=== PATIENT | male | born 1995 ===

== ENCOUNTER 2020-07-31 04:24 | Inpatient (IN) | payer OTHER ==
[2020-07-31] MEDS ORDERED: Boostrix 0.5 ML (Tdap) VIAL ONE (04:29)
[2020-07-31] MEDS ORDERED: Ondansetron PF 4 MG/2 ML Vial ONE ×2 (04:37→05:01)
[2020-07-31 04:41] LABS: Hemoglobin 12.9 g/dL (14.0-18.0); Mean Corpuscular HGB CONC 34.7 g/dL (32.0-36.0); Mean Corpuscular Hemoglobin 32.7 pg (27.0-31.0); Mean Corpuscular Volume 94.2 fL (78.0-98.0); Mean Platelet Volume 7.6 fL (7.4-10.4); Platelet Count 223 thou/uL (130-400); RBC Distribution Width 14.3 % (11.5-14.5); Red Blood Cell (RBC) Count 3.95 mill/uL (4.70-6.10); White Blood Cell (WBC) Count 9.1 thou/uL (4.8-10.8)
[2020-07-31] MEDS ORDERED: Fentanyl 250 MCG/5 ML VIAL ONE (04:58)
[2020-07-31 04:59] LABS: Acetaminophen Less than 6.0 mcg/mL (10.0-30.0); Alcohol Less than 10 mg/dL (Less than 10); Salicylate Less than 8.0 mg/dL (15.0-30.0)
[2020-07-31 05:00] LABS: ALT (SGPT) 19 U/L (8-55); AST (SGOT) 20 U/L (5-34); Alkaline Phosphatase 63 U/L (40-110); Anion Gap 18 mmol/L (10-20); BUN (Urea Nitrogen) 11 mg/dL (8.9-20.6); Bilirubin, Total 0.4 mg/dL (0.2-1.2); Calc. Creatinine Clearance 0 mL/min (70-130); Calcium 9.1 mg/dL (7.8-10.44); Carbon Dioxide 18 mmol/L (22-29); Chloride 106 mmol/L (98-107); Globulin 2.7 g/dL (2.4-3.5); Glucose 248 mg/dL (70-105); Potassium 3.3 mmol/L (3.5-5.1); Protein, Total 6.7 g/dL (6.0-8.3); Sodium 139 mmol/L (136-145)
[2020-07-31] MEDS ORDERED: Calcium Chloride 1 GM/10 ML Abboject SYRINGE ONE ×2 (05:01→05:21)
[2020-07-31] MEDS ORDERED: ePHEDrine Sulfate 50 MG/10 ML VIAL ONE (05:01)
[2020-07-31] MEDS ORDERED: PROPOFOL 200 MG/20 ML VIAL ONE (05:01)
[2020-07-31] MEDS ORDERED: Rocuronium Bromide 10 MG/ML (10ML VIAL) ONE (05:01)
[2020-07-31] MEDS ORDERED: PHENYLEPHRINE-NS 100 MCG/ML 10 ML SYRINGE ONE (05:01)
[2020-07-31] MEDS ORDERED: Lidocaine 1% PF 5 ML VIAL ONE (05:01)
[2020-07-31 05:09] LABS: INR-International Normal Ratio 1.6; PTT 31.3 sec (22.9-36.1); Prothrombin Time 19.4 sec (12.0-14.7)
[2020-07-31 05:14] LABS: Band 2 % (5-11); Lymphocytes 57 % (21-51); MDiff Complete? YES; Monocytes 6 % (0-10); Neutrophil 35 % (42-75)
[2020-07-31 05:15] LABS: Bacteria/HPF None Seen HPF (None Seen); Bilirubin Negative (Negative); Blood, Urine Negative (Negative); Clarity Clear (Clear); Glucose, Urine (Dipstick) Normal (Negative); Ketone, Urine Negative (Negative); Leukocyte Negative Leu/uL (Negative); Nitrite Negative (Negative); Protein, Urine (Dipstick) 20 mg/dL (Neg-Trace); RBC/HPF 0-3 HPF (0-3); Specific Gravity, Urine 1.036 (1.002-1.036); Squamous Epithelial None Seen HPF (0-3); WBC/HPF 0-3 HPF (0-3); pH, Urine 6.5 (5.0-9.0)
[2020-07-31] MEDS ORDERED: Sodium Bicarb 50 MEQ/50 ML Abboject 8.4% SYRINGE ONE (05:21)
[2020-07-31] MEDS ORDERED: TETANUS AND DIPHTHERIA TOX/PF 0.5 ML DISP.SYRIN IM ONE (08:00)
[2020-07-31] MEDS ORDERED: Dextrose 50% Abboject 50 ML SYRINGE SLOW IVP PRN (08:00)
[2020-07-31] MEDS ORDERED: hydrALAZINE 20 MG/ML VIAL SLOW IVP PRN (08:00)
[2020-07-31] MEDS ORDERED: Dextrose 5% in Water 1,000 ML IV PRN (08:00)
[2020-07-31] MEDS ORDERED: Lorazepam 2 MG/ML VIAL ONE (08:03)
[2020-07-31] MEDS ORDERED: fentaNYL Citrate/PF 2,000 MCG in Sodium Chloride 0.9% 60 ML IV PRN (08:06)
[2020-07-31] MEDS ORDERED: Propofol 1,000 MG/100 ML VIAL IV PRN (08:07)
[2020-07-31] MEDS ORDERED: Propofol 1,000 MG/100 ML VIAL IV ONE (08:15)
[2020-07-31 08:30] LABS: Actual Bicarbonate (HCO3a) 26.6 mEq/L (22-28); Base Excess (BEa) 1.7 mEq/L (-2.0 to +3.0); CO2 Tension 43.2 mmHg (35.0-45.0); Calcium, Ionized (arterial) 1.31 mmol/L (1.12-1.30); Carboxyhemoglobin (COHb) 0.3 gm% (0.0-3.0); Hemoglobin (Hb) 10.3 g/dL (14.0-18.0); O2 Tension (PaO2), arterial 189.5 mmHg (80.0-100.0); Potassium - ABG Lab 3.29 mmol/L (3.70-5.30); pH, Arterial 7.41 (7.35-7.45)
[2020-07-31 08:36] LABS: #Basophils 0.1 thou/uL (0.0-0.2); #Lymphocytes 0.8 thou/uL (1.20-3.40); #Monocytes 0.7 thou/uL (0.11-0.59); #Neutrophils 4.4 thou/uL (1.40-6.50); %Basophils 1.6 % (0.0-1.0); %Eosinophils 0.4 % (0.0-10.0); %Lymphocytes 13.7 % (21.0-51.0); %Monocytes 11.2 % (0.0-10.0); %Neutrophils 73.1 % (42.0-75.0); Hemoglobin 10.3 g/dL (14.0-18.0); Mean Corpuscular Hemoglobin 30.5 pg (27.0-31.0); Mean Corpuscular Volume 89.6 fL (78.0-98.0); Mean Platelet Volume 7.4 fL (7.4-10.4); Platelet Count 111 thou/uL (130-400); RBC Distribution Width 12.6 % (11.5-14.5); Red Blood Cell (RBC) Count 3.37 mill/uL (4.70-6.10)
[2020-07-31 08:44] LABS: Puncture Site Arterial Line
[2020-07-31 08:50] LABS: Lactic Acid 3.4 mmol/L (0.5-2.2)
[2020-07-31 08:50] LABS: INR-International Normal Ratio 1.2; Prothrombin Time 15.6 sec (12.0-14.7)
[2020-07-31 09:27] LABS: Anion Gap 14 mmol/L (10-20); BUN (Urea Nitrogen) 11 mg/dL (8.9-20.6); Calc. Creatinine Clearance 0 mL/min (70-130); Calcium 10.6 mg/dL (7.8-10.44); Carbon Dioxide 24 mmol/L (22-29); Chloride 107 mmol/L (98-107); Glucose 139 mg/dL (70-105); Magnesium 1.5 mg/dL (1.6-2.6); Phosphorus 3.4 mg/dL (2.3-4.7); Potassium 3.6 mmol/L (3.5-5.1); Sodium 141 mmol/L (136-145)
[2020-07-31 09:48] LABS: SARS-CoV-2 NAA Rapid Test Not Detected (NotDetected)
[2020-07-31] MEDS ORDERED: Fentanyl CADD 100 ML IV SCH (10:00)
[2020-07-31 10:32] VITALS: BMI 24.7
[2020-07-31] MEDS: Sodium Chloride 0.9% 1,000 ML IV SCH ×3 (11:27→23:45)
[2020-07-31] MEDS: Famotidine/PF 20 mg/2ml Vial SLOW IVP SCH ×2 (11:32→21:26)
[2020-07-31] MEDS ORDERED: Iopamidol-370 76% 500 ML 1 ML ONE (12:32)
[2020-07-31 12:34] LABS: #Basophils 0.1 thou/uL (0.0-0.2); #Lymphocytes 0.4 thou/uL (1.20-3.40); #Monocytes 1.2 thou/uL (0.11-0.59); #Neutrophils 9.4 thou/uL (1.40-6.50); %Basophils 1.2 % (0.0-1.0); %Eosinophils 0.2 % (0.0-10.0); %Lymphocytes 3.4 % (21.0-51.0); %Monocytes 10.7 % (0.0-10.0); %Neutrophils 84.5 % (42.0-75.0); Hemoglobin 10.7 g/dL (14.0-18.0); Mean Corpuscular Hemoglobin 31.7 pg (27.0-31.0); Mean Corpuscular Volume 88.1 fL (78.0-98.0); Mean Platelet Volume 7.2 fL (7.4-10.4); Platelet Count 121 thou/uL (130-400); RBC Distribution Width 12.9 % (11.5-14.5); Red Blood Cell (RBC) Count 3.38 mill/uL (4.70-6.10); White Blood Cell (WBC) Count 11.1 thou/uL (4.8-10.8)
[2020-07-31 12:46] LABS: INR-International Normal Ratio 1.2; Prothrombin Time 15.8 sec (12.0-14.7)
[2020-07-31 12:50] LABS: Lactic Acid 2.1 mmol/L (0.5-2.2)
[2020-07-31 12:53] LABS: Anion Gap 12 mmol/L (10-20); BUN (Urea Nitrogen) 11 mg/dL (8.9-20.6); Calc. Creatinine Clearance 125 mL/min (70-130); Calcium 9.6 mg/dL (7.8-10.44); Carbon Dioxide 27 mmol/L (22-29); Chloride 107 mmol/L (98-107); Glucose 141 mg/dL (70-105); Magnesium 1.3 mg/dL (1.6-2.6); Sodium 142 mmol/L (136-145)
[2020-07-31 12:58] LABS: Phosphorus 4.1 mg/dL (2.3-4.7)
[2020-07-31] MEDS: Piperacillin/Tazobactam 3.375 GM in Sodium Chloride 0.9% 100 ML IVPB SCH ×2 (14:26→21:27)
[2020-07-31] MEDS ORDERED: Magnesium Sulfate 4 GM in Sodium Chloride 0.9% 250 ML 250 ML IVPB SCH (15:00)
[2020-07-31 17:51] LABS: Glucose 133 mg/dL (70-105)
[2020-07-31] MEDS ORDERED: diphenhydrAMINE 50 MG/ML VIAL IM PRN (19:04)
[2020-07-31] MEDS ORDERED: diphenhydrAMINE 50 MG/ML VIAL IVP PRN (19:04)
[2020-07-31] MEDS ORDERED: Promethazine HCl 25 MG/ML VIAL IM PRN (19:04)
[2020-07-31] MEDS ORDERED: diphenhydrAMINE 25 MG CAP PO PRN (19:04)
[2020-07-31] MEDS ORDERED: Naloxone HCl 0.4 mg/ml Vial IV PRN (19:04)
[2020-07-31] MEDS ORDERED: Communication Order-Pharmacy FS SCH (19:15)
[2020-07-31 21:36] LABS: Glucose 147 mg/dL (70-105)
[2020-07-31] MEDS: HYDROmorphone 10 mg/100 ml CADD IVPB PRN (23:37)
[2020-08-01 01:32] LABS: Glucose 136 mg/dL (70-105)
[2020-08-01] MEDS: Piperacillin/Tazobactam 3.375 GM in Sodium Chloride 0.9% 100 ML IVPB SCH ×4 (02:03→19:53)
[2020-08-01 03:56] LABS: INR-International Normal Ratio 1.3; Prothrombin Time 16.6 sec (12.0-14.7)
[2020-08-01 03:58] LABS: Lactic Acid 2.1 mmol/L (0.5-2.2)
[2020-08-01 04:01] LABS: Anion Gap 12 mmol/L (10-20); BUN (Urea Nitrogen) 9 mg/dL (8.9-20.6); CK (CPK) 1031 U/L (30-200); Calc. Creatinine Clearance 116 mL/min (70-130); Calcium 8.7 mg/dL (7.8-10.44); Carbon Dioxide 26 mmol/L (22-29); Chloride 106 mmol/L (98-107); Glucose 141 mg/dL (70-105); Potassium 4.6 mmol/L (3.5-5.1); Sodium 139 mmol/L (136-145)
[2020-08-01 04:12] LABS: Glucose 141 mg/dL (70-105)
[2020-08-01 05:28] LABS: Band 35 % (5-11); Lymphocytes 21 % (21-51); MDiff Complete? YES; Mean Corpuscular HGB CONC 36.2 g/dL (32.0-36.0); Mean Corpuscular Volume 88.4 fL (78.0-98.0); Mean Platelet Volume 8.1 fL (7.4-10.4); Monocytes 4 % (0-10); Neutrophil 40 % (42-75); Platelet Count 100 thou/uL (130-400); Platelet Morphology Comment Appears Decreased; RBC Distribution Width 13.3 % (11.5-14.5); Red Blood Cell (RBC) Count 3.13 mill/uL (4.70-6.10); White Blood Cell (WBC) Count 13.7 thou/uL (4.8-10.8)
[2020-08-01] MEDS: Famotidine/PF 20 mg/2ml Vial SLOW IVP SCH ×2 (08:12→19:54)
[2020-08-01] MEDS: Sodium Chloride 0.9% 1,000 ML IV SCH ×3 (08:27→19:02)
[2020-08-01] MEDS ORDERED: Midazolam HCl 2 mg/2 ml Vial ONE (14:37)
[2020-08-01] MEDS ORDERED: Fentanyl 100 MCG/2 ML VIAL ONE ×2 (14:37)
[2020-08-01] MEDS ORDERED: Succinylcholine 200 MG/10 ml SYRINGE FS ONE (14:54)
[2020-08-01] MEDS ORDERED: PHENYLEPHRINE-NS 100 MCG/ML 10 ML SYRINGE ONE (14:54)
[2020-08-01] MEDS ORDERED: Rocuronium Bromide 10 MG/ML (10ML VIAL) ONE (14:54)
[2020-08-01] MEDS ORDERED: Lidocaine 1% PF 5 ML VIAL ONE (14:54)
[2020-08-01] MEDS ORDERED: PROPOFOL 200 MG/20 ML VIAL ONE (14:54)
[2020-08-01] MEDS ORDERED: HYDROmorphone 0.5 MG/0.5 ML SYRINGE ONE (17:25)
[2020-08-01] MEDS ORDERED: SUGAMMADEX SODIUM 500 MG/5 ML VIAL ONE (17:26)
[2020-08-01] MEDS: HYDROmorphone 10 mg/100 ml CADD IVPB PRN (18:42)
[2020-08-01] MEDS: Ondansetron PF 4 MG/2 ML Vial IVP PRN (21:08)
[2020-08-02] MEDS: Ketorolac Tromethamine 30 MG/ML VIAL IVP SCH ×4 (00:41→17:25)
[2020-08-02] MEDS: Piperacillin/Tazobactam 3.375 GM in Sodium Chloride 0.9% 100 ML IVPB SCH ×4 (02:28→20:38)
[2020-08-02] MEDS: Sodium Chloride 0.9% 1,000 ML IV SCH ×3 (04:07→17:27)
[2020-08-02 04:08] LABS: Anion Gap 12 mmol/L (10-20); BUN (Urea Nitrogen) 11 mg/dL (8.9-20.6); CK (CPK) 1387 U/L (30-200); Calc. Creatinine Clearance 112 mL/min (70-130); Calcium 7.6 mg/dL (7.8-10.44); Carbon Dioxide 23 mmol/L (22-29); Chloride 109 mmol/L (98-107); Glucose 143 mg/dL (70-105); Magnesium 1.8 mg/dL (1.6-2.6); Phosphorus 3.2 mg/dL (2.3-4.7); Potassium 4.4 mmol/L (3.5-5.1); Sodium 140 mmol/L (136-145)
[2020-08-02 04:41] LABS: Band 23 % (5-11); Hemoglobin 9.1 g/dL (14.0-18.0); Lymphocytes 7 % (21-51); MDiff Complete? YES; Mean Corpuscular HGB CONC 35.7 g/dL (32.0-36.0); Mean Corpuscular Hemoglobin 32.2 pg (27.0-31.0); Mean Corpuscular Volume 90.3 fL (78.0-98.0); Mean Platelet Volume 8.8 fL (7.4-10.4); Monocytes 10 % (0-10); Neutrophil 60 % (42-75); Platelet Count 96 thou/uL (130-400); Platelet Morphology Comment Appears Decreased; RBC Distribution Width 13.3 % (11.5-14.5); Red Blood Cell (RBC) Count 2.84 mill/uL (4.70-6.10); White Blood Cell (WBC) Count 13.5 thou/uL (4.8-10.8)
[2020-08-02] MEDS: Famotidine/PF 20 mg/2ml Vial SLOW IVP SCH ×2 (09:12→20:38)
[2020-08-02] MEDS ORDERED: Chloraseptic Spray 180 ml Bottle PO PRN (09:55)
[2020-08-03] MEDS: Ketorolac Tromethamine 30 MG/ML VIAL IVP SCH ×4 (00:06→17:30)
[2020-08-03] MEDS: HYDROmorphone 10 mg/100 ml CADD IVPB PRN (00:08)
[2020-08-03] MEDS: Sodium Chloride 0.9% 1,000 ML IV SCH ×3 (00:08→20:11)
[2020-08-03] MEDS: Piperacillin/Tazobactam 3.375 GM in Sodium Chloride 0.9% 100 ML IVPB SCH ×4 (04:13→20:11)
[2020-08-03] MEDS: Enoxaparin Sodium 40 MG/0.4 ML SYRINGE SC SCH (08:52)
[2020-08-03] MEDS: Famotidine/PF 20 mg/2ml Vial SLOW IVP SCH ×2 (08:53→20:12)
[2020-08-03 12:48] LABS: Actual Bicarbonate (HCO3a) 22.8 mEq/L (22-28); Analyzer IN Cardio OR; Base Excess (BEa) -0.9 mEq/L (-2.0 to +3.0); CO2 Tension 34.1 mmHg (35.0-45.0); Calcium, Ionized (arterial) 1.26 mmol/L (1.12-1.30); Carboxyhemoglobin (COHb) 0.5 gm% (0.0-3.0); Hemoglobin (Hb) 10.4 g/dL (14.0-18.0); O2 Tension (PaO2), arterial 176.5 mmHg (80.0-100.0); Potassium - ABG Lab 4.21 mmol/L (3.70-5.30); pH, Arterial 7.44 (7.35-7.45)
[2020-08-03 12:48] LABS: Actual Bicarbonate (HCO3a) 23.7 mEq/L (22-28); Analyzer IN Cardio OR; Base Excess (BEa) -1.1 mEq/L (-2.0 to +3.0); CO2 Tension 39.8 mmHg (35.0-45.0); Calcium, Ionized (arterial) 1.05 mmol/L (1.12-1.30); Carboxyhemoglobin (COHb) 0.5 gm% (0.0-3.0); Hemoglobin (Hb) 11.1 g/dL (14.0-18.0); Potassium - ABG Lab 4.08 mmol/L (3.70-5.30); pH, Arterial 7.39 (7.35-7.45)
[2020-08-03 12:49] LABS: Actual Bicarbonate (HCO3a) 18.1 mEq/L (22-28); Analyzer IN Cardio OR; Base Excess (BEa) -7.5 mEq/L (-2.0 to +3.0); CO2 Tension 37.1 mmHg (35.0-45.0); Calcium, Ionized (arterial) 0.78 mmol/L (1.12-1.30); Carboxyhemoglobin (COHb) 0.6 gm% (0.0-3.0); Hemoglobin (Hb) 9.2 g/dL (14.0-18.0); O2 Tension (PaO2), arterial 489.3 mmHg (80.0-100.0); Potassium - ABG Lab 4.17 mmol/L (3.70-5.30); Puncture Site Arterial Line; pH, Arterial 7.31 (7.35-7.45)
[2020-08-03 12:49] LABS: Actual Bicarbonate (HCO3a) 22.6 mEq/L (22-28); Analyzer IN Cardio OR; Base Excess (BEa) -2.5 mEq/L (-2.0 to +3.0); CO2 Tension 40.6 mmHg (35.0-45.0); Calcium, Ionized (arterial) 1.16 mmol/L (1.12-1.30); Carboxyhemoglobin (COHb) 0.5 gm% (0.0-3.0); Hemoglobin (Hb) 10.6 g/dL (14.0-18.0); Potassium - ABG Lab 4.22 mmol/L (3.70-5.30); pH, Arterial 7.36 (7.35-7.45)
[2020-08-03 12:50] LABS: O2 Tension (PaO2), arterial 604.8 mmHg (80.0-100.0); Puncture Site Arterial Line
[2020-08-03 12:51] LABS: O2 Tension (PaO2), arterial 549.7 mmHg (80.0-100.0); Puncture Site Arterial Line
[2020-08-03 12:51] LABS: Puncture Site Arterial Line
[2020-08-04] MEDS: Piperacillin/Tazobactam 3.375 GM in Sodium Chloride 0.9% 100 ML IVPB SCH ×4 (01:18→19:56)
[2020-08-04] MEDS: Ketorolac Tromethamine 30 MG/ML VIAL IVP SCH ×2 (01:19→06:48)
[2020-08-04] MEDS: Sodium Chloride 0.9% 1,000 ML IV SCH (06:48)
[2020-08-04] MEDS: HYDROmorphone 10 mg/100 ml CADD IVPB PRN (07:17)
[2020-08-04] MEDS: Enoxaparin Sodium 40 MG/0.4 ML SYRINGE SC SCH (08:28)
[2020-08-04] MEDS: Famotidine/PF 20 mg/2ml Vial SLOW IVP SCH (08:28)
[2020-08-04] MEDS: Ondansetron PF 4 MG/2 ML Vial IVP PRN (09:02)
[2020-08-04] MEDS ORDERED: traMADol HCl 50 MG TAB PO PRN (10:18)
[2020-08-04] MEDS ORDERED: Ibuprofen 600 MG TAB PO SCH (10:30)
[2020-08-04] MEDS: Acetaminophen 325 MG TAB PO SCH ×3 (12:38→23:17)
[2020-08-04] MEDS: traMADol HCl 50 MG TAB PO SCH ×3 (12:39→23:18)
[2020-08-04] MEDS: Ibuprofen 200 MG TAB PO SCH ×2 (14:46→21:17)
[2020-08-05] MEDS: Piperacillin/Tazobactam 3.375 GM in Sodium Chloride 0.9% 100 ML IVPB SCH ×4 (02:00→20:59)
[2020-08-05] MEDS: Acetaminophen 325 MG TAB PO SCH ×4 (05:04→23:00)
[2020-08-05] MEDS: traMADol HCl 50 MG TAB PO SCH ×4 (05:05→23:00)
[2020-08-05] MEDS: Ibuprofen 200 MG TAB PO SCH ×3 (05:05→23:00)
[2020-08-05] MEDS: Ondansetron PF 4 MG/2 ML Vial IVP PRN ×2 (05:37→22:59)
[2020-08-05 05:44] LABS: #Basophils 0.1 thou/uL (0.0-0.2); #Eosinphils 0.2 thou/uL (0.0-0.7); #Lymphocytes 1.8 thou/uL (1.20-3.40); #Monocytes 0.9 thou/uL (0.11-0.59); #Neutrophils 5.6 thou/uL (1.40-6.50); %Basophils 0.7 % (0.0-1.0); %Eosinophils 1.8 % (0.0-10.0); %Lymphocytes 20.9 % (21.0-51.0); %Neutrophils 65.5 % (42.0-75.0); Hemoglobin 6.7 g/dL (14.0-18.0); Mean Corpuscular Hemoglobin 31.6 pg (27.0-31.0); Mean Platelet Volume 7.3 fL (7.4-10.4); Platelet Count 176 thou/uL (130-400); RBC Distribution Width 12.9 % (11.5-14.5); Red Blood Cell (RBC) Count 2.13 mill/uL (4.70-6.10); White Blood Cell (WBC) Count 8.5 thou/uL (4.8-10.8)
[2020-08-05 06:07] LABS: Anion Gap 10 mmol/L (10-20); BUN (Urea Nitrogen) 6 mg/dL (8.9-20.6); Calc. Creatinine Clearance 142 mL/min (70-130); Calcium 8.4 mg/dL (7.8-10.44); Carbon Dioxide 24 mmol/L (22-29); Chloride 108 mmol/L (98-107); Glucose 93 mg/dL (70-105); Magnesium 1.9 mg/dL (1.6-2.6); Phosphorus 3.7 mg/dL (2.3-4.7); Potassium 3.2 mmol/L (3.5-5.1); Sodium 139 mmol/L (136-145)
[2020-08-05] MEDS: Enoxaparin Sodium 40 MG/0.4 ML SYRINGE SC SCH (08:24)
[2020-08-05] MEDS ORDERED: Potassium Chloride 40 MEQ in Premix Bag 1 BAG IVPB SCH (09:15)
[2020-08-05 09:42] LABS: Hemoglobin 7.2 g/dL (14.0-18.0); Mean Corpuscular HGB CONC 34.7 g/dL (32.0-36.0); Mean Corpuscular Hemoglobin 31.9 pg (27.0-31.0); Mean Corpuscular Volume 91.9 fL (78.0-98.0); Mean Platelet Volume 7.2 fL (7.4-10.4); Platelet Count 191 thou/uL (130-400); RBC Distribution Width 13.2 % (11.5-14.5); Red Blood Cell (RBC) Count 2.26 mill/uL (4.70-6.10); White Blood Cell (WBC) Count 11.3 thou/uL (4.8-10.8)
[2020-08-05] MEDS ORDERED: Magnesium Sulfate 2 GM, Potassium Chloride 40 MEQ in Sodium Chloride 0.9% 250 ML 250 ML IVPB SCH (10:00)
[2020-08-06] MEDS: Piperacillin/Tazobactam 3.375 GM in Sodium Chloride 0.9% 100 ML IVPB SCH (02:55)
[2020-08-06 05:13] LABS: #Eosinphils 0.2 thou/uL (0.0-0.7); #Lymphocytes 1.5 thou/uL (1.20-3.40); #Monocytes 1.1 thou/uL (0.11-0.59); #Neutrophils 7.5 thou/uL (1.40-6.50); %Lymphocytes 14.5 % (21.0-51.0); %Monocytes 10.4 % (0.0-10.0); %Neutrophils 73.2 % (42.0-75.0); Mean Corpuscular HGB CONC 33.7 g/dL (32.0-36.0); Mean Corpuscular Hemoglobin 30.5 pg (27.0-31.0); Mean Corpuscular Volume 90.6 fL (78.0-98.0); Mean Platelet Volume 7.6 fL (7.4-10.4); Platelet Count 207 thou/uL (130-400); RBC Distribution Width 14.2 % (11.5-14.5); Red Blood Cell (RBC) Count 2.61 mill/uL (4.70-6.10); White Blood Cell (WBC) Count 10.3 thou/uL (4.8-10.8)
[2020-08-06 05:25] LABS: Chloride 106 mmol/L (98-107); Potassium 3.5 mmol/L (3.5-5.1); Sodium 137 mmol/L (136-145)
[2020-08-06 05:26] LABS: Anion Gap 12 mmol/L (10-20); BUN (Urea Nitrogen) 7 mg/dL (8.9-20.6); Calc. Creatinine Clearance 160 mL/min (70-130); Calcium 8.1 mg/dL (7.8-10.44); Carbon Dioxide 23 mmol/L (22-29); Glucose 87 mg/dL (70-105); Magnesium 1.9 mg/dL (1.6-2.6); Phosphorus 3.6 mg/dL (2.3-4.7)
[2020-08-06] MEDS: Ondansetron PF 4 MG/2 ML Vial IVP PRN (05:46)
[2020-08-06] MEDS: Acetaminophen 325 MG TAB PO SCH ×4 (05:57→23:35)
[2020-08-06] MEDS: Ibuprofen 200 MG TAB PO SCH (05:57)
[2020-08-06] MEDS: traMADol HCl 50 MG TAB PO SCH ×4 (05:57→23:34)
[2020-08-06] MEDS: Enoxaparin Sodium 40 MG/0.4 ML SYRINGE SC SCH (08:26)
[2020-08-06] MEDS ORDERED: Magnesium Sulfate 2 GM in Sodium Chloride 0.9% 100 ML IVPB SCH (09:00)
[2020-08-06] MEDS ORDERED: Potassium Phosphate 30 MMOL, Magnesium Sulfate 2 GM in Sodium Chloride 0.9% 250 ML IVPB SCH (09:00)
[2020-08-06] MEDS ORDERED: Ibuprofen 200 MG TAB PO PRN (09:30)
[2020-08-06] MEDS ORDERED: Promethazine HCl 12.5 MG in Sodium Chloride 0.9% 50 ML IVPB PRN (10:44)
[2020-08-06] MEDS: Promethazine 25 MG TAB PO PRN (23:34)
[2020-08-07] MEDS: Acetaminophen 325 MG TAB PO SCH ×3 (05:07→17:39)
[2020-08-07] MEDS: traMADol HCl 50 MG TAB PO SCH ×3 (05:08→17:39)
[2020-08-07] MEDS: Promethazine 25 MG TAB PO PRN (05:08)
[2020-08-07] MEDS: Enoxaparin Sodium 40 MG/0.4 ML SYRINGE SC SCH (08:38)
[2020-08-07] MEDS: Senokot S 8.6-50 MG TAB PO SCH (10:07)
[2020-08-07] MEDS: Polyethylene Glycol 3350 17 GM Packet PO SCH (10:08)
[2020-08-08] MEDS: Senokot S 8.6-50 MG TAB PO SCH ×3 (00:32→22:17)
[2020-08-08] MEDS: traMADol HCl 50 MG TAB PO SCH ×5 (00:39→22:22)
[2020-08-08] MEDS: Acetaminophen 325 MG TAB PO SCH ×5 (00:40→22:21)
[2020-08-08] MEDS: Polyethylene Glycol 3350 17 GM Packet PO SCH (07:39)
[2020-08-08] MEDS: Enoxaparin Sodium 40 MG/0.4 ML SYRINGE SC SCH (07:39)
[2020-08-09] MEDS: traMADol HCl 50 MG TAB PO SCH ×2 (04:19→09:30)
[2020-08-09] MEDS: Acetaminophen 325 MG TAB PO SCH ×2 (04:20→09:29)
[2020-08-09 08:04] VITALS: BP 120/75; TEMP 98.3
[2020-08-09] MEDS: Enoxaparin Sodium 40 MG/0.4 ML SYRINGE SC SCH (09:28)
[2020-08-09] MEDS: Polyethylene Glycol 3350 17 GM Packet PO SCH (09:29)
[2020-08-09] MEDS: Senokot S 8.6-50 MG TAB PO SCH (09:29)
[2020-08-09] MEDS ORDERED: Senokot 8.6 MG TAB PO PRN (09:46)
[2020-08-09] MEDS ORDERED: Polyethylene Glycol 3350 17 GM Packet PO SCH (10:00)
== END 2020-08-09 15:57 | disposition home or self-care (01) | DRG 957 ==
LOC: ERS 04:24 → SDC 04:54 → CCU 07:44 → EEVIPCON 07:44 → CCU 09:24 → IMCU/EMU 08-01 21:14 → SJJU 08-02 18:21
PROVIDERS: ADMIT Surgery; ATTEND Surgery
PROC: 0DB80ZZ Excision of Small Intestine, Open Approach (ICD-10-PCS; principal; 2020-07-31)
PROC: 0DQV0ZZ Repair Mesentery, Open Approach (ICD-10-PCS; 2020-07-31)
PROC: 0DQC0ZZ Repair Ileocecal Valve, Open Approach (ICD-10-PCS; 2020-07-31)
PROC: 06L Lower Veins, Occlusion (ICD-10-PCS; 2020-07-31)
PROC: 06L Lower Veins, Occlusion (ICD-10-PCS; 2020-07-31)
PROC: 0DBN0ZZ Excision of Sigmoid Colon, Open Approach (ICD-10-PCS; 2020-07-31)
PROC: 30233K1 Transfusion of Nonautologous Frozen Plasma into Peripheral Vein, Percutaneous Approach (ICD-10-PCS; 2020-07-31)
PROC: 30233N1 Transfusion of Nonautologous Red Blood Cells into Peripheral Vein, Percutaneous Approach (ICD-10-PCS; 2020-07-31)
PROC: 30233R1 Transfusion of Nonautologous Platelets into Peripheral Vein, Percutaneous Approach (ICD-10-PCS; 2020-07-31)
PROC: 30233M1 Transfusion of Nonautologous Plasma Cryoprecipitate into Peripheral Vein, Percutaneous Approach (ICD-10-PCS; 2020-07-31)
PROC: 0D1M0ZP Bypass Descending Colon to Rectum, Open Approach (ICD-10-PCS; 2020-08-01)
PROC: 0DQV0ZZ Repair Mesentery, Open Approach (ICD-10-PCS; 2020-08-01)
DX: S36.438A Laceration of other part of small intestine, initial encounter (principal); R57.8 Other shock; T79.6XXA Traumatic ischemia of muscle, initial encounter; S35.515A Injury of left iliac vein, initial encounter; S35.514A Injury of right iliac vein, initial encounter; S31.634A Puncture wound without foreign body of abdominal wall, left lower quadrant with penetration into peritoneal cavity, initial encounter; S31.63 Puncture wound without foreign body of abdominal wall with penetration into peritoneal cavity; D62 Acute posthemorrhagic anemia; S36.893A Laceration of other intra-abdominal organs, initial encounter; S36.593A Other injury of sigmoid colon, initial encounter; Z20.822 Contact with and (suspected) exposure to COVID-19; Z23 Encounter for immunization; Z78.1 Physical restraint status; Z98.890 Other specified postprocedural states; W34.00XA Accidental discharge from unspecified firearms or gun, initial encounter
CPT/HCPCS: 36415; 36416; 36430; 72170; 74018; 74177; 80048; 80053; 80307; 81001; 82550; 82805; 82947; 83605; 83735; 84100; 85007; 85025; 85027; 85384; 85610; 85730; 86850; 86900; 86901; 88307; 90715; 94002; J0690; J1170; J1650; J1885; J2060; J2250; J2405; J2543; J2704; J3010; J3475; J3480; J3490; J7030; J7050; P9012; P9016; P9035; P9048; P9059; Q0169; Q9967; S0028; U0002